=== PATIENT | female | born 1985 | race Caucasian/White ===

== ENCOUNTER 2023-08-14 09:59 | Emergency (ER) | payer OTHER, SELFPAY ==
[2023-08-14 10:00] VITALS: BP 193/88; PULSE 77; RESP 14; TEMP 36.6; O2SAT 98; BMI 28.3
[2023-08-14 10:04] VITALS: BP 193/88; PULSE 73
--- NOTE | 2023-08-14 10:16 | ED.GENADULT ---
HPI - General Adult General Chief complaint: Upper Respiratory Symptoms Stated complaint: per pt something stuck in her throat Time Seen by Provider: 08/14/23 10:00 Source: patient Mode of arrival: Ambulatory History of Present Illness HPI narrative: Patient is a 38-year-old female who is here for evaluation of concerns for something stuck in the right side of her throat. She states that she made a desert earlier this week. She did not notice that the would in spoon that she was using had a crack in it. She states she ate a piece of this [place] yesterday. [place] something in the back of her right throat. She states that today it is hurting. States she feels like something is moving. No problems breathing. It was somewhat tender to swallow but she is able to swallow. Related Data Previous Rx's Medication Instructions Recorded sucralfate 100 mg/mL oral 10 ml PO QACHS #420 mL 08/14/23 suspension (Carafate) Allergies Allergy/AdvReac Type Severity Reaction Status Date / Time No Known Drug Allergies Allergy Verified 08/14/23 10:04 Review of Systems ENT Ears, Nose, Mouth, and Throat: Reports system reviewed and no additional complaints, except as documented Integumentary/Breasts Skin/Breast: Reports system reviewed and no additional complaints, except as documented Patient History Social History Smoking Status: Unknown if ever smoked Smoking Status: Unknown if ever smoked alcohol intake frequency: holidays/special occasions only Substance Use Type: does not use Exam Initial Vital Signs Initial Vital Signs: Vital Signs Temperature 97.9 F 08/14/23 10:00 Pulse Rate 77 08/14/23 10:00 Respiratory Rate 14 08/14/23 10:00 Blood Pressure 193/88 H 08/14/23 10:00 Pulse Oximetry 98 08/14/23 10:00 Oxygen Delivery Method Room Air 08/14/23 10:00 HENNC Head: normal to inspection and normocephalic Mouth: oral mucosae normal Teeth and gingiva: dentition normal Throat: posterior oropharynx normal, uvula midline and no peritonsillar masses Neck Lymphatic: No lymphadenopathy Skin General: no rashes or lesions noted Course Orders Ordered: Discontinued Medications Al Hydrox/Mg Hydrox/Simethicone 20 ml/ Lidocaine HCl 15 ml 0 ml PO NOW ONE Stop: 08/14/23 10:17 Last Admin: 08/14/23 10:24 Dose: 30 ml Documented By: DIRK Vital Signs Vital signs: Vital Signs - 8 hr 08/14/23 10:00 Temperature 97.9 F Pulse Rate 77 Respiratory Rate 14 Blood Pressure 193/88 H Pulse Oximetry 98 Oxygen Delivery Method Room Air Medical Decision Making MDM Narrative Medical decision making narrative: No foreign body was noted on the exam. No respiratory distress. No problems swallowing. She does have some irritation to the right-sided posterior oropharynx. No indication for an x-ray as any potential foreign object is not radiopaque. We discussed the possibility that this is just an abrasion. There was no indication for emergent surgical consultation. Will put her on Carafate in order to soothe the area and also promote healing and she was given return precautions for general surgery as if her symptoms are not improving she may need a endoscopy. Discharge Plan Departure Patient Disposition: Home Clinical Impression: Sore throat Instructions: Sore Throat Activity Restrictions/Additional Instructions: I do recommend that you take the Carafate as directed for the next couple days. I also recommend that you contact the General surgery Department of the number provided below because if your symptoms do not improve with couple days of the Carafate you may need a referral to see General surgery to have an upper endoscopy. Return to the emergency department for new symptoms. Prescriptions: New sucralfate [Carafate] 100 mg/mL suspension 10 ml PO QACHS Qty: 420 0RF Referrals: Olaf Murcia MD [Physician] - Stand Alone Forms: Patient Portal/API
[2023-08-14] MEDS: MAG HYDROX/ALUMINUM/SIMETH SUS 20 ML, LIDOCAINE VISCOUS 2% 15 ML PO (10:24)
[2023-08-14 10:33] VITALS: PULSE 65; O2SAT 97
[2023-08-14 10:34] VITALS: BP 168/79; PULSE 65; O2SAT 100
== END 2023-08-14 10:50 | disposition home or self-care (01) ==
PROVIDERS: Emergency Provider Emergency Medicine
DX: J02.9 Acute pharyngitis, unspecified (principal)
CPT/HCPCS: 99283

== ENCOUNTER 2023-08-15 08:27 | Emergency (ER) | payer OTHER, SELFPAY ==
[2023-08-15 08:46] VITALS: BP 149/71; PULSE 81; RESP 18; TEMP 37.1; O2SAT 100; BMI 28.3
--- NOTE | 2023-08-15 11:17 | ED.RECABL ---
HPI - Recheck/Abnormal Lab/Rx General Chief Complaint: Recheck/Abnormal Lab/Rx Stated Complaint: something stuck in throat, pain Time Seen by Provider: 08/15/23 11:08 Source: patient Mode of arrival: Ambulatory History of Present Illness HPI narrative: Patient is a 38-year-old female that I evaluated in the emergency department yesterday for concern for a foreign body stuck in the right side of her throat. She was subsequently discharged home with Carafate to see if her symptoms improved with time and this is not necessarily a foreign body but more of an abrasion. She states that she has been using the Carafate. No improvement with this medication. States she now has worsening pain. Worsening pain with swallowing. No problems breathing. It now hurts in the right side of her jaw. Related Data Previous Rx's Medication Instructions Recorded sucralfate 100 mg/mL oral 10 ml PO QACHS #420 mL 08/14/23 suspension (Carafate) lidocaine HCl 2 % mucosal solution 1 applic mucous membrane Q6-8H PRN 08/15/23 (Lidocaine Viscous) pain #100 mL Allergies Allergy/AdvReac Type Severity Reaction Status Date / Time tree nut Allergy Anaphylaxis Verified 08/15/23 08:52 Review of Systems Constitutional Constitutional: Reports system reviewed and no additional complaints, except as documented ENT Ears, Nose, Mouth, and Throat: Reports system reviewed and no additional complaints, except as documented Integumentary/Breasts Skin/Breast: Reports system reviewed and no additional complaints, except as documented Patient History Social History Smoking Status: Unknown if ever smoked Smoking Status: Unknown if ever smoked alcohol intake frequency: holidays/special occasions only Substance Use Type: does not use Exam Initial Vital Signs Initial Vital Signs: Vital Signs Temperature 98.7 F 08/15/23 08:46 Pulse Rate 81 08/15/23 08:46 Respiratory Rate 18 08/15/23 08:46 Blood Pressure 149/71 H 08/15/23 08:46 Pulse Oximetry 100 08/15/23 08:46 Oxygen Delivery Method Room Air 08/15/23 08:46 Const General: cooperative and comfortable HENMT Throat: posterior oropharynx normal Resp Effort & Inspection: normal respiratory effort Auscultation: clear to auscultation bilaterally Cardio Rate: regular rate Skin General: no rashes or lesions noted Course Vital Signs Vital signs: Vital Signs - 8 hr 08/15/23 08:46 Temperature 98.7 F Pulse Rate 81 Respiratory Rate 18 Blood Pressure 149/71 H Pulse Oximetry 100 Oxygen Delivery Method Room Air MDM - Recheck/Abnormal Lab/Rx MDM Narrative Medical decision making narrative: Patient continues to have no shortness of breath. Does have some discomfort with swallowing but is able to tolerate her secretions. I discuss the case with Dr. Day on-call for Ear Nose and Throat who stated that the patient can be seen as a outpatient on Saturday. He took her information was going to pass to his clinic. The patient was also given the information for follow-up. Will send her home with a prescription for viscous lidocaine. Recommended a soft diet. Patient was given return precautions. Discharge Plan Departure Patient Disposition: Home Clinical Impression: Sore throat Activity Restrictions/Additional Instructions: I do recommend that you continue to use the Carafate. The viscous lidocaine can be used as well to help numb the throat. Recommend a liquid or soft diet. Give the ENT doctor's office a call early this afternoon to schedule an appointment on Saturday. Prescriptions: New lidocaine HCl [Lidocaine Viscous] 2 % solution 1 applic mucous membrane Q6-8H PRN (Reason: pain) Qty: 100 2RF No Action sucralfate [Carafate] 100 mg/mL suspension 10 ml PO QACHS Qty: 420 0RF Referrals: Ascencion Day MD [Physician] - Provider,Jcarlos BIANCHI [Primary Care Provider] - Stand Alone Forms: Patient Portal/API
[2023-08-15 11:32] VITALS: BP 152/82; PULSE 63; RESP 18; TEMP 36.4; O2SAT 100
== END 2023-08-15 11:51 | disposition home or self-care (01) ==
PROVIDERS: Emergency Provider Emergency Medicine
DX: J02.9 Acute pharyngitis, unspecified (principal)
CPT/HCPCS: 99281; 99283

== ENCOUNTER 2023-08-16 13:48 | Day surgery (SDC) | payer OTHER, SELFPAY ==
--- NOTE | 2023-08-16 | PATH_ITS ---
[facility] Accession Number: [id number] No. of containers..01 Tissue . 01 Material submitted: . esophagus - ESOPHAGEAL BIOPSIES . 01 Diagnosis: ESOPHAGUS, BIOPSY: Squamous mucosa with increased intraepithelial eosinophils (greater than 50 eosinophils per high-power field). Please see comment. Negative for dysplasia and malignancy. [facility] 08/23/2023 1506 Local . 01 Comment: In the proper clinical setting, the histopathologic appearance would support a clinical impression of eosinophilic esophagitis. The differential diagnosis includes drug reaction, gastroesophageal reflux, and food allergies. . . 01 Electronically signed: . Eben Ames MD, PhD, Pathologist NPI- [id number] . 01 Gross description: . ESOPHAGEAL BIOPSIES: Received in formalin are 3 fragment(s) of [place], soft tissue measuring 0.2 x 0.1 x 0.1 cm to 0.4 x 0.2 x 0.2 cm submitted entirely in 1 cassette(s) /[facility] 08/20/2023 0002 Local . 01 Microscopic: . A PAS stain is performed to evaluate for fungal organisms, and is negative. A control stain shows appropriate reactivity. . 01 Pathologist provided ICD-10: R13.10, K20.0 . 01 CPT . 513280, 330274 Specimen Comment: A courtesy copy of this report has been sent to [phone] Performed at: 01 [facility] [address] [place] [address] [address] [facility], [place], [place] [id number] MD Ranulfo Davis MD Phone: [phone]
[2023-08-16 14:12] VITALS: BP 160/80; PULSE 57; RESP 17; O2SAT 100
[2023-08-16] MEDS: LACTATED RINGERS 1,000 ML 100 ML IV (14:20)
--- NOTE | 2023-08-16 14:44 | PM.HP.1 ---
History of Present Illness History of Present Illness Date Patient Seen: 08/16/23 Time Patient Seen: 14:44 Chief complaint: SDC Narrative: 38-year-old woman with throat pain here for diagnostic esophagogastroduodenoscopy. She suspects she swallowed a portion of a wooden spoon within the past couple of days. No history of esophageal dysphagia PFSH Social History Smoking Status: Never smoker Meds Home Medications and Allergies Home Medications Medication Instructions Recorded Confirmed Type sucralfate 100 mg/mL oral 10 ml PO QACHS #420 mL 08/14/23 08/16/23 Rx suspension (Carafate) lidocaine HCl 2 % mucosal solution 1 applic mucous membrane Q6-8H PRN 08/15/23 08/16/23 Rx (Lidocaine Viscous) pain #100 mL hydroxyzine HCl 10 mg tablet 10 mg PO 3XD 08/16/23 08/16/23 History Allergies Allergy/AdvReac Type Severity Reaction Status Date / Time tree nut Allergy Anaphylaxis Verified 08/16/23 14:02 Exam Vital Signs (past 8 hours): - 08/16/23 14:12 Pulse Rate 57 L Respiratory Rate 17 Blood Pressure 160/80 H Pulse Oximetry 100 Oxygen Delivery Method Room Air Oxygen Delivery Method Room Air Narrative Exam Narrative: General adult woman alert oriented no acute distress Chest nonlabored respiration Extremities warm well perfused Assessment & Plan Assessment and plan (1) Sore throat: Status: Acute Assessment & Plan narrative: Diagnostic esophagogastroduodenoscopy for possible foreign body. Overview of the procedure discussed. Procedural risks including missed diagnosis, intestinal injury were reviewed. Questions have been answered and she provides her consent to proceed.
[2023-08-16 15:05] VITALS: BP 107/56; PULSE 64; RESP 16; TEMP 36.8; O2SAT 99
--- NOTE | 2023-08-16 15:05 | PM.OP.EGD ---
Operative Date/Time/Diagnoses Date of procedure: 08/16/23 Time of procedure: 15:06 Pre-op diagnosis: Esophageal foreign body Procedure & Clinicians Study performed: Diagnostic esophagogastroduodenoscopy Same procedure as scheduled: Yes Indications: 38-year-old woman with throat pain concerned that she swallowed a portion of a wooden spoon Surgeon: Olaf Murcia Procedure Notes Procedure in detail: The history and physical was performed/updated and the patient is ASA class is 2. The procedure was discussed in detail with the patient. Potential risks complications including infection, bleeding, missed diagnosis, perforation, need for surgery, and were explained. Their questions were answered and informed consent was obtained. Patient placed in left lateral decubitus position. Time out was performed. Procedural sedation was administered by Anesthesia. A bite block was placed. the scope was inserted into the mouth and advanced through the esophagus and into the stomach. The pylorus was intubated and the duodenum was examined to the 2nd portion. The scope was then withdrawn into the stomach and was retroflexed. The stomach was decompressed and scope was withdrawn slowly through the esophagus. FINDINGS -no foreign body identified -minimal esophageal inflammation. -linear furrowing of the esophagus suggestive of eosinophilic esophagitis. Biopsies performed with forceps The patient tolerated the procedure well and will be discharged when they meet criteria. Specimen(s): none sent Impression: Mild esophagitis Post-procedure Plan for aftercare: Follow up biopsy Follow up with the ENT Disposition: same day surgery
[2023-08-16 15:10] VITALS: BP 112/67; PULSE 60; RESP 14; O2SAT 99
[2023-08-16 15:15] VITALS: BP 117/76; BP 135/68; PULSE 60; PULSE 62; RESP 14; RESP 16; O2SAT 94; O2SAT 99
[2023-08-16 15:40] VITALS: BP 138/64; PULSE 62; RESP 16; TEMP 36.6; O2SAT 100
== END 2023-08-16 15:42 | disposition home or self-care (01) ==
PROVIDERS: Referring Provider Surgery; Visit Provider Surgery
PROC: 0DJ08ZZ Inspection of Upper Intestinal Tract, Via Natural or Artificial Opening Endoscopic (ICD-10-PCS; CPT 43239; principal; 2023-08-16 15:00)
DX: R09.A2 Foreign body sensation, throat (principal)
CPT/HCPCS: 43239; J2704

== ENCOUNTER → 2024-01-15 08:03 | Outpatient (CLI) | payer OTHER, SELFPAY ==
--- NOTE | 2024-01-15 | DI.US.S_ITS ---
PROCEDURE: US PELVIC COMPLETE INDICATIONS: Pelvic and perineal pain TECHNIQUE: Real-time scanning was performed of the pelvic organs, with image documentation. Additional endovaginal scanning was necessary due to incomplete visualization of the adnexal and endometrial structures by transabdominal scanning. COMPARISON: None. FINDINGS: Uterus: Uterus is anteverted and normal in size at 7.6 x 3.9 x 4.9 cm. The myometrium is homogeneous. The endometrium measures 11 mm combined thickness. Ovaries: The right ovary measures 3.5 x 3.8 x 1.9 cm, with a calculated ovarian volume of 13.1 cc. The left ovary measures 2.1 x 1.7 x 1.8 cm, with a calculated ovarian volume of 3.3 cc. Focus of heterogeneous echogenicity is present within the right ovary measuring 1.7 x 1.2 x 1.9 cm. Other: No pathologic free abdominal or pelvic fluid. IMPRESSION: Likely collapsing right hemorrhagic ovarian cysts. Otherwise, unremarkable exam. We strive to produce accurate, complete, and clear reports of imaging services. To assist us in improving patient care, this report was composed using standard report templates and voice recognition software. Therefore, it may contain abnormal punctuation, insertions and/or omissions. Occasional wrong-word or sound-alike substitutions may occur. Though we review the report and make efforts to correct it, we do recommend that the report be read carefully in proper context to recognize any text inaccuracies. Dictated by: Silvana Torres M.D. on 01/15/2024 at 16:21 Approved by: Silvana Torres M.D. on 01/15/2024 at 16:22
== END ==
LOC: US 08:04
DX: R10.2 Pelvic and perineal pain (principal)
CPT/HCPCS: 76830; 76856; 93975